=== PATIENT | male | born 1990 | race African-American/Black ===

== ENCOUNTER 2017-03-12 00:09 | Inpatient (IN) | payer OTHER ==
[~2017-03-12] VITALS: Ht 177.8 cm; Wt 73.9 kg
[2017-03-12 00:29] LABS: EOSINOPHIL (%) 0 % (0-5); HEMATOCRIT 43.3 % (38.0-50.0); IMMATURE GRANULOCYTE (%) 0.5 % (0.0-0.7); INSTRUMENT ABS NEUTROPHIL CT 6.4 K/uL; LYMPHOCYTE COUNT 1.1 K/uL (1.0-2.8); MCH 30.2 PG (29.0-34.0); MCHC 33.7 G/DL (30.0-36.0); MCV 89.5 FL (86-99); MEAN PLAT.VOLUME 9.5 uM^3 (9.0-12.4); MONOCYTE (%) 4.7 % (3-12); MONOCYTE COUNT 0.4 K/uL (0-0.8); NEUTROPHIL (%) 80.4 % (45-76); NEUTROPHIL COUNT 6.4 K/uL (1.8-6.4); PLATELET COUNT 290 K/uL (156-360); RBC DIS.WIDTH-CV 13.7 % (11.8-14.6); RBC DIS.WIDTH-SD 44.2 % (39-53); RED BLOOD COUNT 4.84 M/uL (4.00-5.50); WHITE BLOOD COUNT 7.9 K/uL (4.1-10.2)
[2017-03-12 00:40] LABS: AMYLASE 55 IU/L (1-118); CHLORIDE 101 mEq/L (99-109); POTASSIUM 3.7 mEq/L (3.7-5.4); SODIUM 134 mEq/L (136-147)
[2017-03-12 00:42] LABS: GLUCOSE 126 mg/dL (70-99)
[2017-03-12 00:44] LABS: ANION GAP 12 MEQ/L (2-14)
[2017-03-12 00:45] LABS: SERUM ETHYL ALCOHOL 147 mg/dL
[2017-03-12 00:47] LABS: GFR ESTIMATE (CALCULATED) > 59 mL/min/; UREA NITROGEN (BUN) 8 mg/dL (9-23)
[2017-03-12 00:49] LABS: LIPASE 29 U/L (1.0-51.0)
[2017-03-12 01:13] LABS: TROP-I INTERPRETATION NEGATIVE; TROPONIN-I < 0.01 ng/mL (0.0-0.30)
[2017-03-12 01:37] LABS: ADD MIUA? YES; BILIRUBIN NEGATIVE; BLOOD SMALL; COLOR STRAW ((YELLOW)); GLUCOSE (STRIP) NEGATIVE; KETONES NEGATIVE; LEUKOCYTES NEGATIVE; NITRITE NEGATIVE; PROTEIN (STRIP) NEGATIVE; SPECIFIC GRAVITY 1.029 (1.000-1.030); UROBILINOGEN 0.2 MG/DL (0.2-1.0)
[2017-03-12 01:40] LABS: BACTERIA NONE SEEN /HPF; EPITHELIAL CELLS NONE SEEN /HPF; MUCUS NONE SEEN /LPF; RED BLOOD CELLS 0-5 /HPF (0-5); UCUL ADDED? NO; WHITE BLOOD CELLS 0-5 /HPF (0-5)
[2017-03-12 01:50] LABS: AMPHETAMINE PRESUMPTIVE POSITIVE (500 ng/mL); BARBITURATES NEGATIVE (200 ng/mL); BENZODIAZEPINES NEGATIVE (150 ng/mL); COCAINE PRESUMPTIVE POSITIVE (150 ng/mL); INTERNAL CONTROLS VALID? YES; METHADONE NEGATIVE (200 ng/mL); METHAMPHETAMINE PRESUMPTIVE POSITIVE (500 ng/mL); OPIATES (MORPHINE) NEGATIVE (100 ng/mL); OXYCODONE NEGATIVE (100 ng/mL); PHENCYCLIDINE NEGATIVE (25 ng/mL); PROPOXYPHENE NEGATIVE (300 ng/mL); THC CANNABINOIDS NEGATIVE (50 ng/mL); TRICYCLIC ANTIDEPRESSANTS NEGATIVE (300 ng/mL)
[2017-03-12 01:51] LABS: ADD MEDTOX COMMENT Y
[2017-03-12] MEDS ORDERED: LISINOPRIL10 MG PO (04:26)
[2017-03-12 04:30] VITALS: BP 138/94
[2017-03-12 04:40] VITALS: BP 138/94
[2017-03-12 08:00] VITALS: BP 127/76
[2017-03-12 12:10] VITALS: BP 138/84
[2017-03-12 16:00] VITALS: BP 138/86
[2017-03-12 20:32] VITALS: BP 146/83
[2017-03-13 00:19] VITALS: BP 142/79
[2017-03-13 04:19] VITALS: BP 142/84
[2017-03-13 06:12] LABS: HEMATOCRIT 42.8 % (38.0-50.0); MCH 29.7 PG (29.0-34.0); MCHC 33.4 G/DL (30.0-36.0); MEAN PLAT.VOLUME 9.2 uM^3 (9.0-12.4); PLATELET COUNT 238 K/uL (156-360); RBC DIS.WIDTH-SD 44.6 % (39-53); RED BLOOD COUNT 4.81 M/uL (4.00-5.50); WHITE BLOOD COUNT 8.8 K/uL (4.1-10.2)
[2017-03-13 06:34] LABS: ALKALINE PHOSPHATASE 81 IU/L (3-129); ANION GAP 6 MEQ/L (2-14); CHLORIDE 99 MEQ/L (99-109); GFR ESTIMATE (CALCULATED) > 59 mL/min/; GLUCOSE 77 mg/dL (70-99); POTASSIUM 3.8 MEQ/L (3.7-5.4); SAMPLE HEMOLYSIS CHECK 0; SAMPLE ICTERIC CHECK 0; SAMPLE LIPEMIA CHECK 0; SODIUM 134 MEQ/L (136-147); UREA NITROGEN (BUN) 7 mg/dL (9-23)
[2017-03-13 08:28] VITALS: BP 142/80
[2017-03-13 12:16] VITALS: BP 126/82
[2017-03-13 15:56] VITALS: BP 131/75
[2017-03-13 19:35] VITALS: BP 141/79
[2017-03-14 00:06] VITALS: BP 143/82
[2017-03-14 03:46] VITALS: BP 138/94
[2017-03-14 08:35] VITALS: BP 132/83
[2017-03-14 11:47] VITALS: BP 137/82
[2017-03-14 16:25] VITALS: BP 135/92
[2017-03-14] MEDS ORDERED: PERCOCET 5/31 TABLET PO (16:44)
[2017-03-14] MEDS ORDERED: OXYCODONE HCL10 MG PO (16:44)
[2017-03-14 20:11] VITALS: BP 146/85
[2017-03-15] VITALS (8 sets, daily range): BP systolic 125–148; BP diastolic 68–104
[2017-03-16 06:44] VITALS: BP 139/74
[2017-03-16 12:00] VITALS: BP 124/77
== END 2017-03-16 15:01 | disposition home or self-care (01) | DRG 200 ==
LOC: EDBD 00:09 → TRA 00:09 → 3EAST 02:05 → EDOF 02:05 → ENRESERV 02:52 → 3EAST 04:02
PROVIDERS: Emergency Medicine; Surgery
PROC: 0W9B30Z Drainage of Left Pleural Cavity with Drainage Device, Percutaneous Approach (ICD-10-PCS; principal; 2017-03-12)
DX: S27.0XXA Traumatic pneumothorax, initial encounter (principal); S22.42XA Multiple fractures of ribs, left side, initial encounter for closed fracture; V43.52XA Car driver injured in collision with other type car in traffic accident, initial encounter; S02.2XXA Fracture of nasal bones, initial encounter for closed fracture; M26.621 Arthralgia of right temporomandibular joint; I10 Essential (primary) hypertension; S00.212A Abrasion of left eyelid and periocular area, initial encounter; S00.93XA Contusion of unspecified part of head, initial encounter; F14.10 Cocaine abuse, uncomplicated; R40.2410 Glasgow coma scale score 13-15, unspecified time
CPT/HCPCS: 70336; 70450; 70486; 71010; 71020; 71260; 72040; 72125; 72129; 72132; 74177; 80048; 80053; 81003; 82150; 83690; 84484; 84999; 85025; 85027; 86850; 86900; 86901; 93005; 94799; 99281; 99285; C1729; G0480; J1650; J2405; J7120; Q0169